=== PATIENT | male | born 1950 ===

== ENCOUNTER 2022-08-06 09:12 | Day surgery (SDC) | payer MEDICARE, BC ==
[~2022-08-06] VITALS: Ht 165.1 cm; Wt 100.0 kg
[~2022-08-06 09:12] MED LIST: ALBU90OI61 INH; BENADRYL25 MG PO; GABA100 PO; HYDR1TAB94 PO; METF500 PO; NAPR500 PO; Prinivil10 MG PO; Simvastatin20 MG PO
[2022-08-06] MEDS ORDERED: PRED5 PO (10:08)
--- NOTE | 2022-08-06 10:50 | NUR ---
08/06/22 1050 Demetris Hagan HISTORY, CHART, MEDICATIONS AND ALLERGIES REVIEWED BEFORE START OF PROCEDURE. PATIENT CONFIRMS NPO STATUS AND AGREES WITH SCHEDULED PROCEDURE. 3-LEAD EKG REVIEWED WITH PHYSICIAN PRIOR TO START OF PROCEDURE. MONITOR INTACT WITH CONTINUOUS PULSE OXIMETRY,CAPNOGRAPHY, 3-LEAD EKG, INTERMITTENT BP. SUPPLEMENTAL O2 TO BE TITRATED THROUGHOUT PROCEDURE TO MAINTAIN O2 SATURATION ABOVE 90%. PATIENT DETERMINED TO BE ASA APPROPRIATE FOR PROPOFOL SEDATION PRIOR TO START OF PROCEDURE BY
--- NOTE | 2022-08-06 12:05 | NUR ---
PT TO DAY SURGERY POST COLONOSCOPY. REPORT FROM SEKOU BORJAS. PT TO GET ECG FROM [facility] THREE LEAD DURING PROCEDURE AND POST PROCEDURE SHOWING POSSIBLE ST ELEVATION. PT REPORTS NO PAIN OR DISCOMFORT, NO CHEST PAIN OR NAUSEA.
--- NOTE | 2022-08-06 12:32 | NUR ---
ECG DONE AND GIVEN TO DR MELISSA. PER DR MELISSA NO FOLLOW UP REQUIRED AND PATIENT CAN GO HOME TODAY. 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 PT REPORTS UNDERSTANGING.
--- NOTE | 2022-08-06 12:53 | NUR ---
Patient up to Ambulate independently. Gait steady. Discharge instructions reviewed with patient. Patient verbalizes understanding. Copy given to patient to take home. Discharged via wheelchair to private car for ride home.
== END 2022-08-06 13:01 | disposition home or self-care (01) ==
LOC: ORSCMMR 09:12 → ORD 09:15 → ORSCMMR 10:45
PROVIDERS: Surgery
PROC: 0DJD8ZZ Inspection of Lower Intestinal Tract, Via Natural or Artificial Opening Endoscopic (ICD-10-PCS; principal; 2022-08-06 10:45)
DX: Z12.11 Encounter for screening for malignant neoplasm of colon (principal); Z86.010 Personal history of colon polyps; K57.30 Diverticulosis of large intestine without perforation or abscess without bleeding; E78.5 Hyperlipidemia, unspecified; E11.9 Type 2 diabetes mellitus without complications; J45.909 Unspecified asthma, uncomplicated; Z79.899 Other long term (current) drug therapy; Z79.84 Long term (current) use of oral hypoglycemic drugs; Z87.891 Personal history of nicotine dependence; E66.9 Obesity, unspecified; Z68.37 Body mass index [BMI] 37.0-37.9, adult
CPT/HCPCS: 82947; 93005; 93010; J2704; J7120

== ENCOUNTER 2025-07-31 09:47 | Inpatient (IN) | payer MEDICARE, BC ==
[~2025-07-31] VITALS: Ht 162.6 cm; Wt 98.6 kg
[~2025-07-31 09:47] MED LIST changes: +ALPR.25 PO; +ASPI81CH PO; +Acerola C500 MG PO; +CLOP75 PO; +CYCL10 PO; +Crestor40 MG PO; +FINA5 PO; +METO25 PO; +OMEP20ER PO; +PRED5 PO; +TAMS.4ER PO; +VITAMIN B12500 MCG PO; +VITAMIN D5000 UNIT PO
[2025-07-31] MEDS ORDERED: NS 1,000 ML IV SCH ×3 (10:45→16:00)
[2025-07-31 10:52] LABS: BASOPHILS ABSOLUTE AUTO 0.01 K/mm3 (0.00-0.23); BASOPHILS PERCENT AUTO 0 % (0-2); EOSINOPHILS ABSOLUTE AUTO 0.12 K/mm3 (0.00-0.68); EOSINOPHILS PERCENT AUTO 2 % (0-6); Hematocrit 33.0 % (37.0-53.0); Hemoglobin 11.1 g/dL (13.5-17.5); IMMATURE GRAN ABSOLUTE AUTO 0.02 K/mm3 (0.00-0.10); IMMATURE GRAN PERCENT AUTO 0 % (0-1); LYMPHOCYTES ABSOLUTE AUTO 0.82 K/mm3 (0.84-5.20); LYMPHOCYTES PERCENT AUTO 16 % (21-46); MONOCYTES ABSOLUTE AUTO 0.43 K/mm3 (0.16-1.47); MONOCYTES PERCENT AUTO 8 % (4-13); Mean Corpuscular HGB Conc 33.6 g/dL (31.5-36.5); Mean Corpuscular Volume 91 fL (80-100); NEUTROPHILS ABSOLUTE AUTO 3.81 K/mm3 (1.96-9.15); NEUTROPHILS PERCENT AUTO 73 % (41-73); NRBC ABSOLUTE 0.00 K/mm3 (0.00-0.02); NRBC Auto 0.0 /100 WBC (0.0-0.2); Platelet Count 203 K/mm3 (150-400); RDW Coefficient Variation 13.8 % (11.7-14.2); RDW Standard Deviation 46.0 fL (35.1-46.3)
[2025-07-31 11:07] LABS: Alanine Aminotransfer (ALT/SGP 27.0 U/L (12-78); Albumin, Blood 4.1 g/dL (3.4-5.0); Albumin/Globulin Ratio 1.2 (0.8-1.8); Anion Gap 13.0 mmol/L (3-11); Aspartate Aminotrans (AST/SGOT 19.0 U/L (12-37); Bilirubin, Total 0.4 mg/dL (0.1-1.0); Blood Urea Nitrogen 87.0 mg/dL (8-24); CO2, Blood 19.0 mmol/L (21-32); Calcium, Blood 8.9 mg/dL (8.5-10.1); Chloride, Blood 109.0 mmol/L (98-108); Creatinine, Blood 5.85 mg/dL (0.60-1.20); Globulin, Blood 3.4 g/dL (2.2-4.0); Glucose, Blood 99.0 mg/dL (70-99); Potassium, Blood 4.5 mmol/L (3.5-5.5); Sodium, Blood 136.0 mmol/L (136-145); Total Protein, Blood 7.5 g/dL (6.4-8.2)
[2025-07-31] MEDS ORDERED: COLCRYS0.6 M1 PO (11:52)
[2025-07-31] MEDS ORDERED: ALLO100 PO (11:53)
[2025-07-31] MEDS ORDERED: [UNRECOGNIZED DRUG - OTHER] (11:56)
[2025-07-31] MEDS ORDERED: NITROGLYCERIN0.4 M3 SL (11:56)
[2025-07-31] MEDS ORDERED: ELIQUIS2.5 M1 PO (11:58)
[2025-07-31] MEDS ORDERED: TEMA15 PO (11:59)
[2025-07-31] MEDS ORDERED: EPIPEN0.3 MG/0.3 IM (12:13)
[2025-07-31] MEDS ORDERED: FLU VACC TS2025(65UP)/MF59C/PF 45 MCG/0.5 ML SYRINGE IM SCH (14:30)
[2025-07-31] MEDS ORDERED: Albuterol HFA200 ACT/6.7 GM INH INH PRN (15:05)
[2025-07-31 17:06] VITALS: BP 146/86
[2025-07-31 18:34] LABS: Anion Gap 11.0 mmol/L (3-11); Blood Urea Nitrogen 89.0 mg/dL (8-24); CO2, Blood 20.0 mmol/L (21-32); Calcium, Blood 8.4 mg/dL (8.5-10.1); Chloride, Blood 111.0 mmol/L (98-108); Creatinine, Blood 5.63 mg/dL (0.60-1.20); Glucose, Blood 154.0 mg/dL (70-99); Potassium, Blood 4.4 mmol/L (3.5-5.5); Sodium, Blood 138.0 mmol/L (136-145)
--- NOTE | 2025-07-31 18:35 | NUR ---
End of shift summary: Patient is alert and oriented x4; pleasant and cooperative with care. Patient independent in room; standby with IV. Patient denies SOB, CP or pressure, N/V/D or pain currently. Patient with Tele in place per orders. Denies issues or needs at this time. in room with patient currently. All medication administered per EMAR. Oriented to room and call light; call light within reach and bed in lowest postion. Will continue to monitor until next shift nurse arrives and report is given.
[2025-07-31 19:27] VITALS: BP 142/58
[2025-07-31] MEDS ORDERED: HYDROcodone 7.5-APAP 325 TAB PO SCH (21:00)
[2025-07-31] MEDS ORDERED: Heparin Sodium,Porcine 5,000 UNIT/0.5 ML SDV SC SCH (21:00)
[2025-07-31 23:26] VITALS: BP 126/76
[2025-08-01 03:34] VITALS: BP 100/59
--- NOTE | 2025-08-01 04:22 | NUR ---
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 ABLE TO COMMUNICATE NEEDS EFFECTIVELY. PT HAS BEEN ASLEEP FOR MOST OF THE NIGHT. CHEST RISE/RESPIRATIONS NOTED. REMAINS ON TELE. SR AT 62 W/ 1ST DEG HB AND BBB. LR CONT INF RUNNING AT 150 ML/HR. BED RAILS UP X 2, BED IN LOWEST POSITION, BED WHEELS LOCKED, PERSONAL BELONGINGS AND CALL LIGHT WITHIN REACH FOR SAFETY.
[2025-08-01 06:35] LABS: BASOPHILS ABSOLUTE AUTO 0.01 K/mm3 (0.00-0.23); BASOPHILS PERCENT AUTO 0 % (0-2); EOSINOPHILS ABSOLUTE AUTO 0.13 K/mm3 (0.00-0.68); EOSINOPHILS PERCENT AUTO 3 % (0-6); Hematocrit 28.3 % (37.0-53.0); Hemoglobin 9.4 g/dL (13.5-17.5); IMMATURE GRAN ABSOLUTE AUTO 0.01 K/mm3 (0.00-0.10); IMMATURE GRAN PERCENT AUTO 0 % (0-1); LYMPHOCYTES ABSOLUTE AUTO 0.81 K/mm3 (0.84-5.20); LYMPHOCYTES PERCENT AUTO 20 % (21-46); MONOCYTES ABSOLUTE AUTO 0.44 K/mm3 (0.16-1.47); MONOCYTES PERCENT AUTO 11 % (4-13); Mean Corpuscular HGB Conc 33.2 g/dL (31.5-36.5); Mean Corpuscular Volume 92 fL (80-100); NEUTROPHILS ABSOLUTE AUTO 2.76 K/mm3 (1.96-9.15); NEUTROPHILS PERCENT AUTO 66 % (41-73); NRBC ABSOLUTE 0.00 K/mm3 (0.00-0.02); NRBC Auto 0.0 /100 WBC (0.0-0.2); Platelet Count 173 K/mm3 (150-400); RDW Coefficient Variation 13.9 % (11.7-14.2); RDW Standard Deviation 46.8 fL (35.1-46.3)
[2025-08-01 06:50] LABS: Alanine Aminotransfer (ALT/SGP 21.0 U/L (12-78); Albumin, Blood 3.3 g/dL (3.4-5.0); Albumin/Globulin Ratio 1.1 (0.8-1.8); Anion Gap 9.0 mmol/L (3-11); Aspartate Aminotrans (AST/SGOT 18.0 U/L (12-37); Bilirubin, Total 0.3 mg/dL (0.1-1.0); Blood Urea Nitrogen 83.0 mg/dL (8-24); CO2, Blood 23.0 mmol/L (21-32); Calcium, Blood 8.5 mg/dL (8.5-10.1); Chloride, Blood 113.0 mmol/L (98-108); Creatinine, Blood 5.52 mg/dL (0.60-1.20); Globulin, Blood 3.0 g/dL (2.2-4.0); Glucose, Blood 117.0 mg/dL (70-99); Potassium, Blood 4.6 mmol/L (3.5-5.5); Sodium, Blood 140.0 mmol/L (136-145); Total Protein, Blood 6.3 g/dL (6.4-8.2)
[2025-08-01 07:22] VITALS: BP 130/74
[2025-08-01 11:20] VITALS: BP 121/60
[2025-08-01 12:24] LABS: Albumin, Blood 3.3 g/dL (3.4-5.0); Anion Gap 10 mmol/L (3-11); Blood Urea Nitrogen 81 mg/dL (8-24); CO2, Blood 24 mmol/L (21-32); Calcium, Blood 8.5 mg/dL (8.5-10.1); Chloride, Blood 112 mmol/L (98-108); Creatinine, Blood 5.16 mg/dL (0.60-1.20); Glucose, Blood 150 mg/dL (70-99); Phosphorus, Blood 5.4 mg/dL (2.5-4.9); Potassium, Blood 4.5 mmol/L (3.5-5.5); Sodium, Blood 141 mmol/L (136-145)
[2025-08-01 15:47] VITALS: BP 141/66
[2025-08-01 16:05] LABS: Source, Urine Clean Catch
[2025-08-01 16:14] LABS: Bilirubin, Urine Neg (Neg); Glucose Qualitative, Urine Neg (Neg); Ketones, Urine Neg (Neg); Leukocyte Esterase, Urine Neg (Neg); Protein, Urine 2+ (Neg); Specific Gravity, Urine 1.010 (1.003-1.022); Urobilinogen, Urine NORM (Normal)
[2025-08-01 16:20] LABS: Color, Urine Pale Yellow (P-Yellow)
[2025-08-01 16:21] LABS: Red Blood Cells, Urine 0-2 /hpf (0-2); White Blood Cells, Urine 0-2 /hpf (0-5)
--- NOTE | 2025-08-01 18:03 | NUR ---
PT ALERT AND ORIENTED X4, INDEPENDENT IN ROOM, AMBULATED IN HALLWAY ONCE WITH SPOUSE- TOLERATED WELL. ORDER FOR POST VOID RESIDUAL BLADDER SCANS, RENAL ULTRASOUND COMPLETED TODAY. PT C/O CHRONIC BACK PAIN-TYLENOL GIVEN ONCE, TELEMETRY NS HR 69 1ST DEGREE BLOCK AND BUNDLE BRANCH BLOCK. PT DENIES CHEST PAIN OR SOB WITH ACTIVITY. HOURLY ROUNDING, BED LOWEST POSITION BRAKES ON, CALL LIGHT IN REACH.
[2025-08-01 19:32] VITALS: BP 147/71
[2025-08-02 00:21] VITALS: BP 111/67
[2025-08-02 04:26] VITALS: BP 146/77
[2025-08-02 05:05] LABS: BASOPHILS ABSOLUTE AUTO 0.01 K/mm3 (0.00-0.23); BASOPHILS PERCENT AUTO 0 % (0-2); EOSINOPHILS ABSOLUTE AUTO 0.12 K/mm3 (0.00-0.68); EOSINOPHILS PERCENT AUTO 3 % (0-6); Hematocrit 28.2 % (37.0-53.0); Hemoglobin 9.5 g/dL (13.5-17.5); IMMATURE GRAN ABSOLUTE AUTO 0.01 K/mm3 (0.00-0.10); IMMATURE GRAN PERCENT AUTO 0 % (0-1); LYMPHOCYTES ABSOLUTE AUTO 0.91 K/mm3 (0.84-5.20); LYMPHOCYTES PERCENT AUTO 22 % (21-46); MONOCYTES ABSOLUTE AUTO 0.41 K/mm3 (0.16-1.47); MONOCYTES PERCENT AUTO 10 % (4-13); Mean Corpuscular HGB Conc 33.7 g/dL (31.5-36.5); Mean Corpuscular Volume 92 fL (80-100); NEUTROPHILS ABSOLUTE AUTO 2.78 K/mm3 (1.96-9.15); NEUTROPHILS PERCENT AUTO 66 % (41-73); NRBC ABSOLUTE 0.00 K/mm3 (0.00-0.02); NRBC Auto 0.0 /100 WBC (0.0-0.2); Platelet Count 181 K/mm3 (150-400); RDW Coefficient Variation 13.9 % (11.7-14.2); RDW Standard Deviation 46.7 fL (35.1-46.3)
[2025-08-02 05:30] LABS: Total Iron Binding Capacity 258 ug/dL (250-450); Uric Acid, Blood 5.7 mg/dL (3.5-7.2)
[2025-08-02 06:24] LABS: Albumin, Blood 3.4 g/dL (3.4-5.0); Anion Gap 12 mmol/L (3-11); Blood Urea Nitrogen 68 mg/dL (8-24); CO2, Blood 19 mmol/L (21-32); Calcium, Blood 9.0 mg/dL (8.5-10.1); Chloride, Blood 115 mmol/L (98-108); Creatinine, Blood 4.80 mg/dL (0.60-1.20); Glucose, Blood 105 mg/dL (70-99); Phosphorus, Blood 5.6 mg/dL (2.5-4.9); Potassium, Blood 4.2 mmol/L (3.5-5.5); Sodium, Blood 142 mmol/L (136-145)
--- NOTE | 2025-08-02 06:39 | NUR ---
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 ABLE TO COMMUNICATE NEEDS EFFECTIVELY. PT HAS BEEN ASLEEP FOR MOST OF THE NIGHT. CHEST RISE/RESPIRATIONS NOTED. REMAINS ON TELE. SR AT 64 W/ 1ST DEG HB AND BBB. LR CONT INF RUNNING AT 100 ML/HR. BLADDER SCAN DONE POST VOID PER ORDER. 252 ML. ORDER TO STRAIGHT CATH OVER 300 ML. NO STRAIGHT CATH DONE. BED RAILS UP X 2, BED IN LOWEST POSITION, BED WHEELS LOCKED, PERSONAL BELONGINGS AND CALL LIGHT WITHIN REACH FOR SAFETY.
[2025-08-02 08:39] VITALS: BP 152/71
[2025-08-02 15:53] VITALS: BP 144/74
--- NOTE | 2025-08-02 16:58 | NUR ---
End of shift summary: Patient is alert and oriented x4; pleasant and cooperative with care. Patient denies SOB, CP or pressure, N/V/D and with minimal pain today voiced. All medications administered per EMAR. Patient up ambulating in hallways with spouse this evening. No acute changes this shift. Bed in lowest position, call light within reach. Will continue to monitor until next shift nurse arrives and report is given. Plan to possible discharge home tomorrow.
[2025-08-02 19:17] VITALS: BP 142/69
[2025-08-03 03:54] VITALS: BP 147/71
--- NOTE | 2025-08-03 06:28 | NUR ---
SHIFT SUMMARY A/Ox4, VSS ON RA. PT REPORTS FEELING BETTER. PT REPORTS CHRONIC BACK PAIN, NORCO EFFECTIVE. NO ACUTE CHANGES OVERNIGHT. PT VOIDING WITH URINAL, BLADDER SCANS FOUND <300 ML EACH TIME. CALL LIGHT IN REACH, NO FURTHER NEEDS AT THIS TIME.
[2025-08-03 07:43] LABS: Hematocrit 27.8 % (37.0-53.0); Hemoglobin 9.4 g/dL (13.5-17.5); Mean Corpuscular HGB Conc 33.8 g/dL (31.5-36.5); Mean Corpuscular Volume 91 fL (80-100); NRBC ABSOLUTE 0.00 K/mm3 (0.00-0.02); NRBC Auto 0.0 /100 WBC (0.0-0.2); Platelet Count 191 K/mm3 (150-400); RDW Coefficient Variation 13.7 % (11.7-14.2); RDW Standard Deviation 46.2 fL (35.1-46.3)
[2025-08-03 07:49] VITALS: BP 155/74
[2025-08-03 07:50] LABS: Albumin, Blood 3.6 g/dL (3.4-5.0); Anion Gap 8 mmol/L (3-11); Blood Urea Nitrogen 53 mg/dL (8-24); CO2, Blood 24 mmol/L (21-32); Calcium, Blood 9.0 mg/dL (8.5-10.1); Chloride, Blood 114 mmol/L (98-108); Creatinine, Blood 3.78 mg/dL (0.60-1.20); Glucose, Blood 112 mg/dL (70-99); Phosphorus, Blood 4.2 mg/dL (2.5-4.9); Potassium, Blood 4.1 mmol/L (3.5-5.5); Sodium, Blood 142 mmol/L (136-145)
[2025-08-03] MEDS ORDERED: Polyethylene Glycol 3350 17 gm PO PRN (08:00)
[2025-08-03] MEDS ORDERED: Polyethylene Glycol 3350 17 gm PO ONE (08:00)
--- NOTE | 2025-08-03 14:30 | NUR ---
DISCHARGE SUMMARY PATIENT DISCHARGED HOME WITH TO DRIVE. IV REMOVED WITHOUT COMPLICATION. DISCHARGE PACKET GIVEN AND REVIEWED, QUESTIONS ANSWERED, VERBALIZED UNDERSTANDING.
[2025-08-07 00:49] LABS: ALPHA 1 GLOBULIN 0.31 g/dL (0.19-0.46); ALPHA 2 GLOBULIN 0.38 g/dL (0.48-1.05); BETA GLOBULIN 0.80 g/dL (0.48-1.10); GAMMA 0.86 g/dL (0.62-1.51); IMMUNOFIXATION REFLEX Not Done
== END 2025-08-03 13:15 | disposition home or self-care (01) | DRG 683 ==
LOC: ER 09:47 → MEDS 09:48 → ENPENDDIS 08-03 11:01 → MEDS 08-03 13:15
PROVIDERS: Emergency Medicine; Hospitalist; Registered Nurse; ADMIT Hospitalist
DX: N17.9 Acute kidney failure, unspecified (principal); G93.49 Other encephalopathy; I12.9 Hypertensive chronic kidney disease with stage 1 through stage 4 chronic kidney disease, or unspecified chronic kidney disease; E11.22 Type 2 diabetes mellitus with diabetic chronic kidney disease; N18.32 Chronic kidney disease, stage 3b; I48.0 Paroxysmal atrial fibrillation; N40.0 Benign prostatic hyperplasia without lower urinary tract symptoms; M10.9 Gout, unspecified; I25.10 Atherosclerotic heart disease of native coronary artery without angina pectoris; R19.7 Diarrhea, unspecified; Z90.49 Acquired absence of other specified parts of digestive tract; Z96.641 Presence of right artificial hip joint; Z95.4 Presence of other heart-valve replacement; Z87.891 Personal history of nicotine dependence; Z79.02 Long term (current) use of antithrombotics/antiplatelets; Z79.52 Long term (current) use of systemic steroids; Z79.82 Long term (current) use of aspirin; Z79.84 Long term (current) use of oral hypoglycemic drugs; Z79.899 Other long term (current) drug therapy
CPT/HCPCS: 36415; 51702; 76770; 80048; 80053; 80069; 81001; 82550; 82947; 83540; 83550; 84550; 85025; 85027; 93005; 93010; 94760; 96360; 96361; 96372; 97110; 97161; 99285-25; A9270; G0378; J1644; J7030; J7120